=== PATIENT | male | born 1955 | race Caucasian/White ===

== ENCOUNTER 2020-01-21 17:08 | Inpatient (IN) ==
--- NOTE | 2020-01-21 19:47 | DR.EXTPAIN ---
HPI Time seen Time Seen by Provider: 01/21/20 19:46 PCP Primary Care Physician: Eliza HPI Comment HPI Comment: PATIENT IS 64 YR OLD FEMALE IN ER WITH INFECTED RIGHT FOOT TIMES 2 DAYS. PATIENT IS ON AMOXICILLIN PO. RUNNING FEVER. PATIENT HAVE 5/10 PAIN IN RIGHT FOOT. PAIN RADIATES TO LEG. ACHING NUMBING PAIN. PAIN PROGRESSIVE AND GETTING WORSE. PATIENT HAVE DECREASE SENSATION IN LOWER EXTREMITIES. NO DRAINAGE. Complaint/Symptoms Chief Complaint Doctor Comments: RIGHT FOOT INFECTION TIMES DAYS. Chief Complaint:: Right foot cellulitis, noted edema Self Treatment fo Chief Complaint: Amoxicillin 850 mg PO BID COVID-19 Coronavirus risk:travel/contact w/high risk person: No Has patient experienced Coronavirus symptoms: No Nurses notes reviewed Nurses Notes Review: Yes Source History Provided: Patient Mode of arrival Mode of Arrival: Ambulatory Timing Onset of Chief Complaint: 01/19/20 Context History of: Arthritis Associated signs and symptoms Associated Signs and Symptoms: Pain and Swelling PMH PMH Past Medical History: Yes Past Medical History: Angina, Arthritis, CHF, COPD and Hyperthyroidism Past Medical History Comment: atrial fib, aneurysm, Past Surgical History: Yes Surgical History: Joint Replacement and Ortho Surgery Past Surgical History Comment: pacemaker, watchman, syl knee replacement, syl hip replacement Family History History of Family Medical Conditions: Yes Family Medical History: Cancer, MD and Hypertension Social History Alcohol Use: None Do you use any recreational Drugs:: No Lives With: Spouse Lives Where: Home Infectious screening In the last 2 months have you had wt loss of >10#?: NO Have you had fever, night sweats or hemotysis?: No Have you traveled outside the country in the last 6 months?: No Isolation: Standard ROS Review of Systems Constitutional: See HPI and Fever; negative Weakness and Fatigue Eyes: No Symptoms Reported and See HPI ENTM: No Symptoms Reported and See HPI; negative Nose Discharge and Nose Congestion Respiratoy: See HPI and Short of Breath (ON EXERTION.); negative Wheezing Cardiovascular: No Symptoms Reported and See HPI; negative Chest Pain Gastrointestinal/Abdominal: No Symptoms Reported and See HPI; negative Abdominal Pain, Nausea and Vomiting Genitourinary: No Symptoms Reported and See HPI; negative Dysuria and Hematuria Neurological: No Symptoms Reported, See HPI, Numbness (LOWER EXTREMITIES.) and Paresthesia (LOWER EXTREMITIES.); negative Headache, Weakness and Dizziness Musculoskeletal: See HPI and Back Pain Integumentary: See HPI, Change in Color and Other (INFECTED TOES AND FOOT RIGHT.) Hematologic/Lymphatic: Easy Bruising; negative Swollen Glands Endocrine: No Symptoms Reported; negative Increased Thirst and Increased Urine Psychiatric: No Symptoms Reported and See HPI All Other Systems: Reviewed and Negative PE Vital Signs Vitals: Temperature 100.3 F Pulse Rate 82 Respiratory Rate 20 Blood Pressure [Left Arm] 147/72 Blood Pressure 118/71 O2 Sat by Pulse Oximetry 97 General Limitations: No Limitations General Appearance: Alert and In No Apparent Distress Head Head Exam: Normal Inspection Eyes Eye exam: Normal Appearance and PERRL; negative Scleral Icterus and Conjunctival Injection ENT ENT Exam: Normal Exam, Normal Oropharynx, Normal External Ear Exam and TM's Nor mal Bilaterally Neck Neck Exam: Normal Inspection and Trachea Midline; negative Tenderness and Lymphadenopathy Chest Chest Inspection: Normal Inspection and Symmetric Chest Wall Rise; negative Tenderness Respiratory Respiratory Exam: Normal Lung Sounds Bilat; negative Accessory Muscle Use, Chest Wall Tenderness and Respiratory Distress Respiratory Exam: Bilateral: Rhonchi and Lower: Rhonchi Cardiovascular Cardiovascular Exam: Regular Rate, Normal Rhythm, Normal Heart Sounds and Systolic Murmur; negative Diastolic Murmur Abdominal Exam Abdominal Exam: Normal Inspection, Normal Bowel Sounds and Soft; negative Tenderness Extremities Extremities Exam: Other (RIGHT FOOT REDNESS AND SWELLING WITH OBVIOUS INFECT ION.) Back Back Exam: Normal Inspection and Paraspinal Tenderness; negative (R) CVA Tenderness and (L) CVA Tenderness Neurological Neurological Exam: Alert and Oriented X3; negative Motor Sensory Deficit Psychiatric Psychiatric Exam: Normal Affect and Normal Mood Skin Skin Exam: Erythema (INFECTED RIGHT FOOT.) Type of Lesion: Abscess (ABSCESS WITH CELLULITIS RIGHT FOOT.) Distribution: RLE Description: Tenderness and Erythematous MDM Differential Diagnosis Differential Diagnosis: Other (ABSCESS WITH CELLULITIS RIGHT FOOT. FEVER, OSTEOMYELITIS.) COURSE Treatment Treatment: SEE ORDERS. VANCOMYCIN 1 GM IVPB AND NS IN ER. Consultation Consultation Comments: DISCUSSED PATIENT WITH DR. ROWAN. HE WILL ADMIT PATIENT. Education/Counseling Education/Counseling: Patient Educated On: Diagnosis ROR Labs Reviewed Laboratory Results Reviewed?: Yes Result Diagrams: 01/25/20 05:20 01/25/20 08:05 Laboratory: 01/21/20 20:29 Blood Blood Culture - Final 01/21/20 20:23 Blood Blood Culture - Final WBC 24.3 X10^3/uL (3.6-10.0) H 01/21/20 20: RBC 4.60 X10^6/uL (4.7-6.0) L 01/21/20 20: Hgb 13.6 g/dL (13.5-18.0) 01/21/20 20: Hct 40.5 % (42.0-54.0) L 01/21/20 20: MCV 88.0 fL (80.0-100.0) 01/21/20 20: MCH 29.5 pg (27.0-34.0) 01/21/20: MCHC 33.5 g/dL (33.0-35.0) 01/21/20: RDW 14.2 % (11.6-16.5) 01/21/20: Plt Count 186 X10^3/uL (150.0-450.0) 01/21/20 20: Plt Count Comment Adequate (ADEQUATE) 01/21/20: MPV 7.0 fL (7.4-11.0) L 01/21/20 20: Neut % (Auto) 82.3 % (42.0-75.0) H 01/21/20 20: Lymph % (Auto) 7.6 % (21.0-51.0) L 01/21/20: [place] % (Auto) 9.1 % (0.0-13.0) 01/21/20 20: Eos % (Auto) 0.4 % (0.9-2.9) L 01/21/20 20: Baso % (Auto) 0.6 % (0.2-1.0) 01/21/20 20: Neut # (Auto) 20.0 x10^3/uL (2.2-4.8) H 01/21/20 20:23 Lymph # (Auto) 1.9 X10^3/uL (1.3-2.9) 01/21/20 20: [place] # (Auto) 2.2 x10^3/uL (0.3-0.8) H 01/21/20 20:23 Eos # (Auto) 0.1 x10^3/uL (0.0-0.2) 01/21/20 20:23 Baso # (Auto) 0.2 X10^3/uL (0.0-0.1) H 01/21/20 20:23 Absolute Nucleated RBC 0.0 /100WBC 01/21/20 20:23 Total Counted 100 01/21/20 20:23 Neutrophils % (Manual) 71 % (39-76) 01/21/20 20:23 Band Neutrophils % 8 % (0-10) 01/21/20 20:23 Lymphocytes % (Manual) 13 % (13-43) 01/21/20 20:23 Monocytes % (Manual) 8 % (4-9) 01/21/20 20:23 Plt Morphology Comment Normal (NORMAL) 01/21/20 20: RBC Morphology Normal (NORMAL) 01/21/20 20: ESR 91 MM/HOUR (0-15) H 01/21/20 20:23 Sodium 136 mmol/L (136-145) 01/21/20 20:23 Corrected Sodium 136 mmol/L (136-145) 01/21/20 20:23 Potassium 3.7 mmol/L (3.5-5.1) 01/21/20 20:23 Chloride 99 mmol/L (98-107) 01/21/20 20:23 Carbon Dioxide 26.6 mmol/L (21-32) 01/21/20 20:23 BUN 24 mg/dL (7-18) H 01/21/20 20:23 Creatinine 1.18 mg/dL (0.70-1.30) 01/21/20 20:23 Est GFR (MDRD) Af Amer > 60 (>60) 01/21/20 20:23 Est GFR (MDRD) Non-Af > 60 (>60) 01/21/20 20:23 Glucose 113 mg/dL (65-99) H 01/21/20 20:23 Calcium 8.6 mg/dL (8.5-10.1) 01/21/20 20: Corrected Calcium 9.5 mg/dL (8.5-10.1) 01/21/20 20:23 Total Bilirubin 0.60 mg/dL (0.2-1.0) 01/21/20 20:23 AST 42 Units/L (15-37) H 01/21/20 20:23 ALT 65 Units/L (12-78) 01/21/20 20:23 Alkaline Phosphatase 91 Units/L (46-116) 01/21/20 20:23 C-Reactive Protein 276.60 mg/L (0-3.0) H 01/21/20 20:23 Total Protein 7.5 g/dL (6.4-8.2) 01/21/20 20:23 Albumin 2.9 g/dL (3.4-5.0) L 01/21/20 20:23 Globulin 4.6 g/dL (2.5-4.5) H 01/21/20 20:23 Albumin/Globulin Ratio 0.6 Ratio (1.1-2.1) L 01/21/20 20:23 XRAY XRAY Interpreted by: Radiologist (REPORT NOTED AND DISCUSSED WITH PATIENT.) and Self Opioid Opioid Risk Tool Age (Deandre box if 16-45): No History of Preadolescent Sexual Abuse: No Total: 0 Total Score Risk Category: Low Risk Copyright: Tomas HICKS predicting aberrant behaviors Instructions Instructions: Cellulitis, Adult Hypothyroidism Incision and Drainage, Care After Dyslipidemia Atrial Fibrillation Forms: Excuse From Work Precautions for COVID19 Patient Portal Social Distancing
[2020-01-21 20:46] LABS: BASOPHILS # (AUTO) 0.2 X10^3/uL (0.0-0.1); BASOPHILS % (AUTO) 0.6 % (0.2-1.0); EOSINOPHILS # (AUTO) 0.1 x10^3/uL (0.0-0.2); EOSINOPHILS % (AUTO) 0.4 % (0.9-2.9); HEMATOCRIT 40.5 % (42.0-54.0); HEMOGLOBIN 13.6 g/dL (13.5-18.0); LYMPHOCYTES # (AUTO) 1.9 X10^3/uL (1.3-2.9); LYMPHOCYTES % (AUTO) 7.6 % (21.0-51.0); MEAN CORPUSCULAR HEMOGLOBIN 29.5 pg (27.0-34.0); MEAN CORPUSCULAR HGB CONC 33.5 g/dL (33.0-35.0); MONOCYTES # (AUTO) 2.2 x10^3/uL (0.3-0.8); MONOCYTES % (AUTO) 9.1 % (0.0-13.0); NEUTROPHILS % (AUTO) 82.3 % (42.0-75.0); PLATELET COUNT 186 X10^3/uL (150.0-450.0); RED CELL DISTRIBUTION WIDTH 14.2 % (11.6-16.5); WHITE BLOOD COUNT 24.3 X10^3/uL (3.6-10.0)
[2020-01-21 20:54] LABS: ALANINE AMINOTRANSFERASE 65 Units/L (12-78); ALBUMIN 2.9 g/dL (3.4-5.0); ALKALINE PHOSPHATASE 91 Units/L (46-116); ASPARTATE AMINO TRANSFERASE 42 Units/L (15-37); BLOOD UREA NITROGEN 24 mg/dL (7-18); CALCIUM 8.6 mg/dL (8.5-10.1); CARBON DIOXIDE 26.6 mmol/L (21-32); CHLORIDE 99 mmol/L (98-107); COR CA(FOR HYPOALB) 9.5 mg/dL (8.5-10.1); COR NA(FOR HYPERGLY) 136 mmol/L (136-145); CREATININE 1.18 mg/dL (0.70-1.30); SODIUM 136 mmol/L (136-145); TOTAL PROTEIN 7.5 g/dL (6.4-8.2); eGFR NON BLACK RACES > 60 (>60)
[2020-01-21] MEDS ORDERED: NS 1000 ML 1,000 ML ONE (20:57)
[2020-01-21 21:06] LABS: BAND NEUTROPHILS % 8 % (0-10); PLATELET MORPHOLOGY COMMENT NORMAL (NORMAL)
[2020-01-21] MEDS: NS 1000 ML 1,000 ML IV SCH (21:12)
[2020-01-21 21:43] LABS: ERYTHROCYTE SEDIMENTATION RATE 91 MM/HOUR (0-15)
[2020-01-21] MEDS ORDERED: VANCOMYCIN IV *PREMIX 1 G/200 ML BAG 1 G/200 ML PIGGYBACK IV ONE (22:06)
--- NOTE | 2020-01-21 22:20 | RAD ---
HISTORYs/t swelling redness edema fevered right foot.br stepped on something days ago to plantar surface inferior base of first digit has puncture wound diabetes htnSTUDYFOOT, RIGHTCOMPARISONNoneFINDINGSThere is a previous osteotomy along the distal 1st metatarsal bone with surgical screws in the area. There is a surgical screw along the base of the proximal phalanx of the 1st toe. There is a surgical screw seen along the head of the 2nd metatarsal bone with a linear old unfused fracture along the head of the 2nd metatarsal bone.There is a surgical pin along the proximal phalanx of the 4th toe. There has been surgical resection of the head of the 3rd metatarsal bone. The tarsal bones are intact. There is bony spurring along the calcaneus. There is mild soft tissue swelling around the distal foot. There is a subchondral cyst or erosion along the DIP joint of the 1st toe and there is moderate soft tissue swelling lateral to the MTP joint with hallux valgus deformity of the great toe.IMPRESSIONExtensive postop changes along the distal foot with probable old unfused fracture along the head of the 2nd metatarsal bone and previous surgical resection of the head of the 3rd metatarsal bone with no obvious acute bony abnormality.Moderate soft tissue swelling lateral to the 1st MTP joint with prominent hallux valgus deformity great toe.Questionable subchondral cyst or erosion along the proximal phalanx of 1st toe distally.Electronically signed by: ANTHONY CHEUNG (Jan 21, 2020 22:18:46)
[2020-01-21] MEDS ORDERED: NS 250 ML IV 250 ML IV ONE (22:43)
[2020-01-21] MEDS ORDERED: VANCOMYCIN HCL ONE (22:43)
[2020-01-21] MEDS ORDERED: PHARMACY CONSULT - VANCOMYCIN XX SCH (23:00)
[2020-01-21] MEDS ORDERED: ZOFRAN TAB 4 MG PO PRN (23:24)
[2020-01-21] MEDS ORDERED: NS 1000 ML 1,000 ML IV SCH (23:45)
[2020-01-22 00:01] LABS: BILIRUBIN,URINE NEGATIVE (NEGATIVE); BLOOD/HEMOGLOBIN,URINE NEGATIVE (NEGATIVE); GLUCOSE, URINE NEGATIVE (NEGATIVE); KETONES,URINE NEGATIVE (NEGATIVE); LEUKOCYTE ESTERASE ,URINE NEGATIVE (NEGATIVE); NITRITES,URINE NEGATIVE (NEGATIVE); PROTEIN,URINE NEGATIVE (NEGATIVE); UROBILINOGEN,URINE NORMAL (NORMAL)
[2020-01-22 00:05] LABS: APPEARANCE,URINE CLEAR (CLEAR); COLOR,URINE YELLOW (YELLOW)
[2020-01-22 01:09] VITALS: BMI 32.4
[2020-01-22 06:06] LABS: BASOPHILS # (AUTO) 0.1 X10^3/uL (0.0-0.1); BASOPHILS % (AUTO) 0.3 % (0.2-1.0); EOSINOPHILS # (AUTO) 0.2 x10^3/uL (0.0-0.2); EOSINOPHILS % (AUTO) 0.9 % (0.9-2.9); HEMATOCRIT 38.6 % (42.0-54.0); LYMPHOCYTES # (AUTO) 1.8 X10^3/uL (1.3-2.9); LYMPHOCYTES % (AUTO) 9.2 % (21.0-51.0); MEAN CORPUSCULAR HEMOGLOBIN 29.5 pg (27.0-34.0); MEAN CORPUSCULAR HGB CONC 33.7 g/dL (33.0-35.0); MEAN CORPUSCULAR VOLUME 87.6 fL (80.0-100.0); MEAN PLATELET VOLUME 7.3 fL (7.4-11.0); MONOCYTES # (AUTO) 1.6 x10^3/uL (0.3-0.8); MONOCYTES % (AUTO) 8.4 % (0.0-13.0); NEUTROPHILS # (AUTO) 15.6 x10^3/uL (2.2-4.8); NEUTROPHILS % (AUTO) 81.2 % (42.0-75.0); PLATELET COUNT 163 X10^3/uL (150.0-450.0); RED BLOOD COUNT 4.41 X10^6/uL (4.7-6.0); RED CELL DISTRIBUTION WIDTH 14.2 % (11.6-16.5); WHITE BLOOD COUNT 19.2 X10^3/uL (3.6-10.0)
[2020-01-22 06:20] LABS: ALANINE AMINOTRANSFERASE 59 Units/L (12-78); ALBUMIN 2.6 g/dL (3.4-5.0); ALKALINE PHOSPHATASE 84 Units/L (46-116); ASPARTATE AMINO TRANSFERASE 35 Units/L (15-37); BLOOD UREA NITROGEN 20 mg/dL (7-18); CALCIUM 8.4 mg/dL (8.5-10.1); CHLORIDE 103 mmol/L (98-107); COR CA(FOR HYPOALB) 9.5 mg/dL (8.5-10.1); CREATININE 0.96 mg/dL (0.70-1.30); SODIUM 139 mmol/L (136-145); eGFR NON BLACK RACES > 60 (>60)
[2020-01-22] MEDS ORDERED: DEXTROSE 5% IV SCH (08:00)
[2020-01-22] MEDS ORDERED: VANCOMYCIN HCL IV SCH (08:00)
[2020-01-22] MEDS: VANCOMYCIN HCL 1 G in D5W 250 ML IV 250 ML IV SCH ×3 (08:46→21:45)
[2020-01-22] MEDS: ASPIRIN EC 81 MG PO SCH ×2 (08:47→21:44)
[2020-01-22] MEDS: NORVASC TAB 5 MG PO SCH (08:47)
[2020-01-22] MEDS: LIPITOR TAB 20 MG PO SCH (08:48)
[2020-01-22] MEDS: HYDROCHLOROTHIAZIDE 12.5 MG CAP PO SCH (08:48)
[2020-01-22] MEDS: SYNTHROID 25 mcg TAB PO SCH ×2 (08:50→16:31)
--- NOTE | 2020-01-22 08:54 | DR.H&P ---
H&P History & Physical for Day of: H&P Date: 01/22/20 Chief Complaint Chief Complaint: Right foot swelling and redness Allergies Allergies Allergy/AdvReac Type Severity Reaction Status Date / Time No Known Drug Allergies Allergy Verified 01/21/20 17:32 History of Present Illness History of Present Illness: Pt is a 64 yo m presenting with right foot erythema and edema that he initially noticed on Tuesday. He has neuropathy in his legs and has limited sensation so he does not recall feeling any injury but noticed a puncture wound on the sole of foot. He reports redness of surround skin has spread. Labs/imaging: Wbc 24.3>19.2, Hgb 13, Plt 163, Na 139, K 3.8, Cr 0.96, Gluc 95, CRP 276, UA negative, XR right foot: commented on moderate soft tissue swelling but no other acute findings. Pt was started on antibiotics IV Vancomycin, will continue treatment. Area of erythema demarcated using pen. Consult general surgery for evaluation. Resume home medications. Pt received last year Tdap. Continue to monitor and follow up labs/imaging in the morning. Past Medical History Past Medical History: Angina, Arthritis, CHF, COPD and Hyperthyroidism Past Surgical History Surgical History: Ortho Surgery Family History Family Medical History: Cancer, DC and Hypertension Social History Does patient currently use any type of tobacco product: No Have you used tobacco products in the last 12 months: No Type of Tobacco Use: None Alcohol Use: None Drug Use: None Medications Home Medications: No Known Drug Allergies Allergy (Verified 01/21/20 17:32) Labs Result Diagrams: 01/22/20 05:22 01/22/20 05:22 Labs: Laboratory WBC 19.2 X10^3/uL (3.6-10.0) H 01/22/20 05:22 RBC 4.41 X10^6/uL (4.7-6.0) L 01/22/20 05:22 Hgb 13.0 g/dL (13.5-18.0) L 01/22/20 05:22 Hct 38.6 % (42.0-54.0) L 01/22/20 05:22 MCV 87.6 fL (80.0-100.0) 01/22/20 05:22 MCH 29.5 pg (27.0-34.0) 01/22/20 05:22 MCHC 33.7 g/dL (33.0-35.0) 01/22/20 05:22 RDW 14.2 % (11.6-16.5) 01/22/20 05:22 Plt Count 163 X10^3/uL (150.0-450.0) 01/22/20 05:22 Plt Count Comment Adequate (ADEQUATE) 01/21/20 20:23 MPV 7.3 fL (7.4-11.0) L 01/22/20 05:22 Neut % (Auto) 81.2 % (42.0-75.0) H 01/22/20 05:22 Lymph % (Auto) 9.2 % (21.0-51.0) L 01/22/20 05:22 [place] % (Auto) 8.4 % (0.0-13.0) 01/22/20 05:22 Eos % (Auto) 0.9 % (0.9-2.9) 01/22/20 05:22 Baso % (Auto) 0.3 % (0.2-1.0) 01/22/20 05:22 Neut # (Auto) 15.6 x10^3/uL (2.2-4.8) H 01/22/20 05:22 Lymph # (Auto) 1.8 X10^3/uL (1.3-2.9) 01/22/20 05:22 [place] # (Auto) 1.6 x10^3/uL (0.3-0.8) H 01/22/20 05:22 Eos # (Auto) 0.2 x10^3/uL (0.0-0.2) 01/22/20 05:22 Baso # (Auto) 0.1 X10^3/uL (0.0-0.1) 01/22/20 05:22 Absolute Nucleated RBC 0.0 /100WBC 01/22/20 05:22 Total Counted 100 01/21/20 20:23 Neutrophils % (Manual) 71 % (39-76) 01/21/20 20:23 Band Neutrophils % 8 % (0-10) 01/21/20 20:23 Lymphocytes % (Manual) 13 % (13-43) 01/21/20 20:23 Monocytes % (Manual) 8 % (4-9) 01/21/20 20:23 Plt Morphology Comment Normal (NORMAL) 01/21/20 20:23 RBC Morphology Normal (NORMAL) 01/21/20 20:23 ESR 91 MM/HOUR (0-15) H 01/21/20 20:23 Sodium 139 mmol/L (136-145) 01/22/20 05:22 Corrected Sodium TNP 01/22/20 05:22 Potassium 3.8 mmol/L (3.5-5.1) 01/22/20 05:22 Chloride 103 mmol/L (98-107) 01/22/20 05:22 Carbon Dioxide 30.0 mmol/L (21-32) 01/22/20 05:22 BUN 20 mg/dL (7-18) H 01/22/20 05:22 Creatinine 0.96 mg/dL (0.70-1.30) 01/22/20 05:22 Est GFR (MDRD) Af Amer > 60 (>60) 01/22/20 05:22 Est GFR (MDRD) Non-Af > 60 (>60) 01/22/20 05:22 Glucose 95 mg/dL (65-99) 01/22/20 05:22 Calcium 8.4 mg/dL (8.5-10.1) L 01/22/20 05:22 Corrected Calcium 9.5 mg/dL (8.5-10.1) 01/22/20 05:22 Total Bilirubin 0.80 mg/dL (0.2-1.0) 01/22/20 05:22 AST 35 Units/L (15-37) 01/22/20 05:22 ALT 59 Units/L (12-78) 01/22/20 05:22 Alkaline Phosphatase 84 Units/L (46-116) 01/22/20 05:22 C-Reactive Protein 276.60 mg/L (0-3.0) H 01/21/20 20:23 Total Protein 7.0 g/dL (6.4-8.2) 01/22/20 05:22 Albumin 2.6 g/dL (3.4-5.0) L 01/22/20 05:22 Globulin 4.4 g/dL (2.5-4.5) 01/22/20 05:22 Albumin/Globulin Ratio 0.6 Ratio (1.1-2.1) L 01/22/20 05:22 Specimen Type Clean catch urine 01/21/20 23:45 Urine Color Yellow (YELLOW) 01/21/20 23:45 Urine Appearance Clear (CLEAR) 01/21/20 23:45 Urine pH 5.0 (5.0 - 8.0) 01/21/20 23:45 Ur Specific [place] 1.020 (1.000-1.030) 01/21/20 23:45 Urine Protein Negative (NEGATIVE) 01/21/20 23:45 Urine Glucose (UA) Negative (NEGATIVE) 01/21/20 23:45 Urine Ketones Negative (NEGATIVE) 01/21/20 23:45 Urine Occult Blood Negative (NEGATIVE) 01/21/20 23:45 Urine Nitrite Negative (NEGATIVE) 01/21/20 23:45 Urine Bilirubin Negative (NEGATIVE) 01/21/20 23:45 Urine Urobilinogen Normal (NORMAL) 01/21/20 23:45 Ur Leukocyte Esterase Negative (NEGATIVE) 01/21/20 23:45 Review of Systems Constitutional: No Symptoms Reported Eyes: No Symptoms Reported ENT: No Symptoms Reported Respiratory: No Symptoms Reported Cardiovascular: No Symptoms Reported Gastrointestinal: No Symptoms Reported Genitourinary: No Symptoms Reported Musculoskeletal: Foot Pain Skin: Rash and Wound Neurological: No Symptoms Reported Physical Exam Vital Signs: Temperature 98.2 F Pulse Rate [Left Brachial] 60 Pulse Rate 82 Respiratory Rate 18 Blood Pressure [Left Arm] 128/65 Blood Pressure 118/71 O2 Sat by Pulse Oximetry 96 Oriented: Normal Eyes: Normal Ear: Normal Nose: Normal Throat: Normal Respiratory: Clear Throughout Cardiovascular: Normal : Normal Auscultation: Bowel Sounds: Normal Palpation: Normal Tenderness: Normal Skin: Red (erythema plantar and dorsal of right foot) and Wound (Right foot puncture) Musculoskeletal: Normal Psychiatric: Normal Mood Description: Calm and Appropriate Affect: Normal Speech Pattern: Clear and Appropriate Assessment/Plan (1) Cellulitis of foot, right: Status: Acute Plan: IV Vancomycin Consult general surgery. (2) Atrial fibrillation: Status: Acute (3) Presence of Watchman left atrial appendage closure device: Status: Acute (4) Pacemaker: Status: Acute (5) Hypertension: Status: Acute (6) Hypothyroidism: Status: Acute (7) Hyperlipidemia: Status: Acute Review H&P Reviewed: Yes Patient was examined?: Yes
[2020-01-22] MEDS ORDERED: VANCOMYCIN HCL 500 MG in D5W 100 ML IV 100 ML IV SCH (09:00)
[2020-01-22] MEDS: NS 1000 ML 1,000 ML IV SCH ×2 (09:10→11:01)
--- NOTE | 2020-01-22 10:50 | RAD ---
HISTORYPREOPSTUDYCHEST, 1 VIEWCOMPARISONNoneTECHNIQUEAP view of the chestFINDINGSLeft chest wall pacemaker with lead in good position. Cardiac silhouette is borderline in size. Patchy left mid and lower lung opacities are present. No pleural effusion or pneumothorax.IMPRESSIONNonspecific patchy left mid and lower lung opacity may represent pneumonia in the right clinical setting.Electronically signed by: Meliton Osman (Jan 22, 2020 10:49:18)
[2020-01-22] MEDS ORDERED: LOVENOX INJ 40 MG SYR SC SCH (11:00)
[2020-01-22] MEDS: ROCEPHIN VIAL 1 GRAM 1 G in NS 100 ML IV + SPIKE MINIBAG* 100 ML IV SCH (12:02)
[2020-01-23] MEDS: NS 1000 ML 1,000 ML IV SCH ×3 (02:03→22:50)
[2020-01-23] MEDS ORDERED: PHARMACY COMMENT IV NR (05:30)
[2020-01-23 05:43] LABS: BLOOD UREA NITROGEN 15 mg/dL (7-18); CALCIUM 8.6 mg/dL (8.5-10.1); CARBON DIOXIDE 27.1 mmol/L (21-32); CHLORIDE 105 mmol/L (98-107); CREATININE 0.96 mg/dL (0.70-1.30); SODIUM 140 mmol/L (136-145); eGFR NON BLACK RACES > 60 (>60)
[2020-01-23 06:00] LABS: CREATININE 0.73 mg/dL (0.70-1.30); VANCOMYCIN,TROUGH 9.4 ug/mL (15-20)
--- NOTE | 2020-01-23 06:25 | CT ---
HISTORYs/t swelling redness edema fevered right foot.br stepped on something days ago to plantar surface inferior base of first digit has puncture woundSTUDYLOWER EXT W/O CONCOMPARISONNoneTECHNIQUECT of the right foot without contrast with sagittal and coronal reformats.Dose reduction techniques including Automated Exposure Control (AEC) and adjustment of mA and kV were utilized.FINDINGSStatus post chevron osteotomy of the great toe. There is nail fixation of the proximal phalanx of the 2nd digit and 4th digit status post resection arthroplasty. The head of the 2nd metatarsal and 3rd metatarsal appears flattened.There are a few foci of gas at the plantar aspect of the great toe at the level of the head of the proximal phalanx. See image 17 sagittal. There is significant associated soft tissue swelling. Mild subcutaneous edema over the dorsum of the foot. No acute fracture. Moderate midfoot degenerative change. Plantar and dorsal calcaneal spurs are present. Moderate degenerative change of great toe interphalangeal joint.IMPRESSIONSignificant soft tissue swelling about the plantar aspect of the proximal phalanx of the great toe and head of the great toe metatarsal. There are few tiny foci of gas likely the representing the site of puncture. Cannot exclude a small abscess but evaluation is limited without contrast.No specific evidence of osteomyelitis but consider MRI for this indication.Postoperative change as above.Electronically signed by: Meliton Osman (Jan 23, 2020 06:23:58)
[2020-01-23 06:42] LABS: BASOPHILS # (AUTO) 0.2 X10^3/uL (0.0-0.1); BASOPHILS % (AUTO) 1.2 % (0.2-1.0); EOSINOPHILS # (AUTO) 0.2 x10^3/uL (0.0-0.2); EOSINOPHILS % (AUTO) 1.5 % (0.9-2.9); HEMATOCRIT 40.2 % (42.0-54.0); HEMOGLOBIN 13.4 g/dL (13.5-18.0); LYMPHOCYTES % (AUTO) 13.9 % (21.0-51.0); MEAN CORPUSCULAR HEMOGLOBIN 29.3 pg (27.0-34.0); MEAN CORPUSCULAR HGB CONC 33.3 g/dL (33.0-35.0); MEAN CORPUSCULAR VOLUME 88.1 fL (80.0-100.0); MEAN PLATELET VOLUME 7.7 fL (7.4-11.0); MONOCYTES # (AUTO) 1.5 x10^3/uL (0.3-0.8); MONOCYTES % (AUTO) 10.9 % (0.0-13.0); NEUTROPHILS # (AUTO) 10.3 x10^3/uL (2.2-4.8); NEUTROPHILS % (AUTO) 72.5 % (42.0-75.0); PLATELET COUNT 170 X10^3/uL (150.0-450.0); RED BLOOD COUNT 4.56 X10^6/uL (4.7-6.0); RED CELL DISTRIBUTION WIDTH 14.1 % (11.6-16.5); WHITE BLOOD COUNT 14.2 X10^3/uL (3.6-10.0)
[2020-01-23 07:37] LABS: PLATELET MORPHOLOGY COMMENT NORMAL (NORMAL)
[2020-01-23] MEDS ORDERED: POLYMYXIN B SULFATE ONE (07:59)
[2020-01-23] MEDS: LIPITOR TAB 20 MG PO SCH (08:25)
[2020-01-23] MEDS: ASPIRIN EC 81 MG PO SCH ×2 (08:25→20:36)
[2020-01-23] MEDS: VANCOMYCIN HCL 250 MG, VANCOMYCIN HCL 1 G in D5W 250 ML IV 250 ML IV SCH ×3 (08:25→23:29)
[2020-01-23] MEDS: NORVASC TAB 5 MG PO SCH (08:25)
[2020-01-23] MEDS: HYDROCHLOROTHIAZIDE 12.5 MG CAP PO SCH (08:25)
--- NOTE | 2020-01-23 10:13 | PCM.PROG ---
Progress Note Progress Note for Day of Date of Exam: 01/23/20 Subjective Subjective: Pt is a 64 yo m pmhx Afib, HTN, Hypothyroidism, BLE neuropathy, HLD, admitted for right foot cellulitis vs abscess. He reports some improvement in erythema from demarcation line as well as edema. Labs/imaging: Wbc 19.2>14, Hgb 13.4, Plt 170, Na 140, K 3.9, Cr 0.73, Gluc 100. CT R foot: Significant soft tissue swelling about the plantar aspect of the proximal phalanx of the great toe and head of the great toe metatarsal. There are few tiny foci of gas likely the representing the site of puncture. Cannot exclude a small abscess but evaluation is limited without contrast. No specific evidence of osteomyelitis but consider MRI for this indication. Postoperative change as above. He is a patient of podiatry, Dr Crum that will be taking to the OR this morning for washout of possible underlying abscess. Incidentally on pre- operative imaging CXR showed Nonspecific patchy left mid and lower lung opacity may represent pneumonia in the right clinical setting. Pt not complaining of any respiratory problems or fevers, however while in hospital and about to have procedure, started pt on Rocephin. Continue IV Vancomycin. Continue to monitor and follow up labs/imaging in the morning. Past Medical Family Social History Past Med/Fam/Surg Hx: No changes since H&P Allergies: Allergies No Known Drug Allergies Allergy (Verified 01/21/20 17:32) Review of Systems ROS: No change since H&P Vital Signs and I&O's Vital Signs: Temperature 97.7 F Pulse Rate [Left Brachial] 60 Pulse Rate 82 Respiratory Rate 20 Blood Pressure [Left Arm] 131/68 Blood Pressure 118/71 O2 Sat by Pulse Oximetry 97 Intake and Output: Intake & Output 01/20/20 01/21/20 01/22/20 01/23/20 23:59 23:59 23:59 23:59 Intake Total 3258 / 3258 559 / 559 Output Total 2425 / 2425 1725 / 1725 Balance 833 / 833 -1166 / -1166 Physical Exam Oriented: Normal Eyes: Normal Ear: Normal Nose: Normal Throat: Normal Respiratory: Normal Cardiovascular: Normal : Normal Auscultation: Bowel Sounds: Normal Tenderness: Normal Skin: Red (erythema plantar and dorsal of right foot) and Wound (Right foot puncture) Musculoskeletal: Normal Psychiatric: Normal Mood Description: Calm and Appropriate Affect: Normal Speech Pattern: Clear and Appropriate Laboratory and Diagnostics Result Diagrams: 01/23/20 05:30 01/23/20 05:30 Labs: Laboratory WBC 14.2 X10^3/uL (3.6-10.0) H 01/23/20 05:30 RBC 4.56 X10^6/uL (4.7-6.0) L 01/23/20 05:30 Hgb 13.4 g/dL (13.5-18.0) L 01/23/20 05:30 Hct 40.2 % (42.0-54.0) L 01/23/20 05:30 MCV 88.1 fL (80.0-100.0) 01/23/20 05:30 MCH 29.3 pg (27.0-34.0) 01/23/20 05:30 MCHC 33.3 g/dL (33.0-35.0) 01/23/20 05:30 RDW 14.1 % (11.6-16.5) 01/23/20 05:30 Plt Count 170 X10^3/uL (150.0-450.0) 01/23/20 05:30 Plt Count Comment Adequate (ADEQUATE) 01/23/20 05:30 MPV 7.7 fL (7.4-11.0) 01/23/20 05:30 Neut % (Auto) 72.5 % (42.0-75.0) 01/23/20 05:30 Lymph % (Auto) 13.9 % (21.0-51.0) L 01/23/20 05:30 [place] % (Auto) 10.9 % (0.0-13.0) 01/23/20 05:30 Eos % (Auto) 1.5 % (0.9-2.9) 01/23/20 05:30 Baso % (Auto) 1.2 % (0.2-1.0) H 01/23/20 05:30 Neut # (Auto) 10.3 x10^3/uL (2.2-4.8) H 01/23/20 05:30 Lymph # (Auto) 2.0 X10^3/uL (1.3-2.9) 01/23/20 05:30 [place] # (Auto) 1.5 x10^3/uL (0.3-0.8) H 01/23/20 05:30 Eos # (Auto) 0.2 x10^3/uL (0.0-0.2) 01/23/20 05:30 Baso # (Auto) 0.2 X10^3/uL (0.0-0.1) H 01/23/20 05:30 Absolute Nucleated RBC 0.1 /100WBC 01/23/20 05:30 Total Counted 100 01/21/20 20:23 Neutrophils % (Manual) 71 % (39-76) 01/21/20 20:23 Band Neutrophils % 8 % (0-10) 01/21/20 20:23 Lymphocytes % (Manual) 13 % (13-43) 01/21/20 20:23 Monocytes % (Manual) 8 % (4-9) 01/21/20 20:23 Plt Morphology Comment Normal (NORMAL) 01/23/20 05:30 RBC Morphology Normal (NORMAL) 01/23/20 05:30 ESR 91 MM/HOUR (0-15) H 01/21/20 20:23 Sodium 140 mmol/L (136-145) 01/23/20 05:30 Corrected Sodium TNP 01/23/20 05:30 Potassium 3.9 mmol/L (3.5-5.1) 01/23/20 05:30 Chloride 105 mmol/L (98-107) 01/23/20 05:30 Carbon Dioxide 27.1 mmol/L (21-32) 01/23/20 05:30 BUN 15 mg/dL (7-18) 01/23/20 05:30 Creatinine 0.73 mg/dL (0.70-1.30) 01/23/20 05:30 Creatinine 0.96 mg/dL (0.70-1.30) 01/23/20 05:30 Est GFR (MDRD) Af Amer > 60 (>60) 01/23/20 05:30 Est GFR (MDRD) Non-Af > 60 (>60) 01/23/20 05:30 Glucose 100 mg/dL (65-99) H 01/23/20 05:30 Calcium 8.6 mg/dL (8.5-10.1) 01/23/20 05:30 Corrected Calcium 9.5 mg/dL (8.5-10.1) 01/22/20 05:22 Total Bilirubin 0.80 mg/dL (0.2-1.0) 01/22/20 05:22 AST 35 Units/L (15-37) 01/22/20 05:22 ALT 59 Units/L (12-78) 01/22/20 05:22 Alkaline Phosphatase 84 Units/L (46-116) 01/22/20 05:22 C-Reactive Protein 276.60 mg/L (0-3.0) H 01/21/20 20:23 Total Protein 7.0 g/dL (6.4-8.2) 01/22/20 05:22 Albumin 2.6 g/dL (3.4-5.0) L 01/22/20 05:22 Globulin 4.4 g/dL (2.5-4.5) 01/22/20 05:22 Albumin/Globulin Ratio 0.6 Ratio (1.1-2.1) L 01/22/20 05:22 Specimen Type Clean catch urine 01/21/20 23:45 Urine Color Yellow (YELLOW) 01/21/20 23:45 Urine Appearance Clear (CLEAR) 01/21/20 23:45 Urine pH 5.0 (5.0 - 8.0) 01/21/20 23:45 Ur Specific [place] 1.020 (1.000-1.030) 01/21/20 23:45 Urine Protein Negative (NEGATIVE) 01/21/20 23:45 Urine Glucose (UA) Negative (NEGATIVE) 01/21/20 23:45 Urine Ketones Negative (NEGATIVE) 01/21/20 23:45 Urine Occult Blood Negative (NEGATIVE) 01/21/20 23:45 Urine Nitrite Negative (NEGATIVE) 01/21/20 23:45 Urine Bilirubin Negative (NEGATIVE) 01/21/20 23:45 Urine Urobilinogen Normal (NORMAL) 01/21/20 23:45 Ur Leukocyte Esterase Negative (NEGATIVE) 01/21/20 23:45 Vancomycin Trough 9.4 ug/mL (15-20) L 01/23/20 05:30 Plan (1) Cellulitis of foot, right: Status: Acute Plan: IV Vancomycin Follow up recs and post-op washout by podiatry-Dr Hlad. (2) Atrial fibrillation: Status: Acute (3) Presence of Watchman left atrial appendage closure device: Status: Acute (4) Pacemaker: Status: Acute (5) Hypertension: Status: Acute (6) Hypothyroidism: Status: Acute (7) Hyperlipidemia: Status: Acute
[2020-01-23] MEDS ORDERED: LR 1000 ML IV 1,000 ML IV ONE (10:17)
[2020-01-23] MEDS ORDERED: FENTANYL INJ 100 mcg ONE (12:01)
[2020-01-23] MEDS ORDERED: DIPRIVAN VIAL ONE (12:10)
[2020-01-23] MEDS ORDERED: VERSED ONE (12:10)
[2020-01-23] MEDS ORDERED: XYLOCAINE 1 % (PLAIN) ONE (12:10)
[2020-01-23] MEDS ORDERED: MARCAINE 0.25% INJ ONE (12:16)
[2020-01-23] MEDS: ROCEPHIN VIAL 1 GRAM 1 G in NS 100 ML IV + SPIKE MINIBAG* 100 ML IV SCH (13:08)
[2020-01-23] MEDS: SYNTHROID 25 mcg TAB PO SCH (16:10)
[2020-01-24] MEDS: SYNTHROID 25 mcg TAB PO SCH (05:47)
[2020-01-24] MEDS: NS 1000 ML 1,000 ML IV SCH ×2 (05:47→19:00)
[2020-01-24 07:28] LABS: BASOPHILS # (AUTO) 0.1 X10^3/uL (0.0-0.1); BASOPHILS % (AUTO) 0.7 % (0.2-1.0); EOSINOPHILS # (AUTO) 0.3 x10^3/uL (0.0-0.2); EOSINOPHILS % (AUTO) 1.6 % (0.9-2.9); HEMOGLOBIN 12.7 g/dL (13.5-18.0); LYMPHOCYTES # (AUTO) 2.3 X10^3/uL (1.3-2.9); LYMPHOCYTES % (AUTO) 14.5 % (21.0-51.0); MEAN CORPUSCULAR HEMOGLOBIN 29.4 pg (27.0-34.0); MEAN CORPUSCULAR HGB CONC 33.4 g/dL (33.0-35.0); MEAN PLATELET VOLUME 6.8 fL (7.4-11.0); MONOCYTES # (AUTO) 1.5 x10^3/uL (0.3-0.8); MONOCYTES % (AUTO) 9.4 % (0.0-13.0); NEUTROPHILS # (AUTO) 11.8 x10^3/uL (2.2-4.8); NEUTROPHILS % (AUTO) 73.8 % (42.0-75.0); PLATELET COUNT 190 X10^3/uL (150.0-450.0); RED BLOOD COUNT 4.32 X10^6/uL (4.7-6.0)
[2020-01-24 07:30] LABS: BLOOD UREA NITROGEN 14 mg/dL (7-18); CALCIUM 8.4 mg/dL (8.5-10.1); CARBON DIOXIDE 26.7 mmol/L (21-32); CHLORIDE 103 mmol/L (98-107); CREATININE 0.89 mg/dL (0.70-1.30); SODIUM 138 mmol/L (136-145); eGFR NON BLACK RACES > 60 (>60)
[2020-01-24 07:35] LABS: CREATININE 0.9 mg/dL (0.70-1.30); VANCOMYCIN,TROUGH 15.8 ug/mL (15-20)
[2020-01-24] MEDS: VANCOMYCIN HCL 250 MG, VANCOMYCIN HCL 1 G in D5W 250 ML IV 250 ML IV SCH ×2 (08:59→16:05)
[2020-01-24] MEDS: HYDROCHLOROTHIAZIDE 12.5 MG CAP PO SCH (09:00)
[2020-01-24] MEDS ORDERED: LOVENOX INJ 40 MG SYR SC SCH (09:00)
[2020-01-24] MEDS: ASPIRIN EC 81 MG PO SCH ×2 (09:00→20:15)
[2020-01-24] MEDS: LIPITOR TAB 20 MG PO SCH (09:01)
[2020-01-24] MEDS: NORVASC TAB 5 MG PO SCH (09:01)
--- NOTE | 2020-01-24 11:08 | PCM.PROG ---
Progress Note Progress Note for Day of Date of Exam: 01/24/20 Subjective Subjective: Pt is a 64 yo m pmhx Afib, HTN, Hypothyroidism, BLE neuropathy, HLD, admitted for right foot cellulitis and abscess. Yesterday he had I&D and washout of wound. He reports doing well post-surgery. Labs/imaging: Wbc 14>16, Hgb 12.7, Plt 190, Na 138, K 3.8, Cr 0.89, Gluc 102. WoundCx pending. Podiatry to see pt today and will follow up recs. Continue antibiotics, Vancomycin+Rocephin. Monitor and follow up labs/imaging in the morning. Past Medical Family Social History Past Med/Fam/Surg Hx: No changes since H&P Allergies: Allergies No Known Drug Allergies Allergy (Verified 01/21/20 17:32) Review of Systems ROS: No change since H&P Vital Signs and I&O's Vital Signs: Temperature 97.7 F Pulse Rate [Left Brachial] 61 Pulse Rate 82 Respiratory Rate 20 Blood Pressure [Left Arm] 131/69 Blood Pressure 118/71 O2 Sat by Pulse Oximetry 98 Intake and Output: Intake & Output 01/21/20 01/22/20 01/23/20 01/24/20 23:59 23:59 23:59 23:59 Intake Total 3258 / 3258 4309 / 4309 563 / 563 Output Total 2425 / 2425 4020 / 4020 Balance 833 / 833 289 / 289 563 / 563 Physical Exam Oriented: Normal Eyes: Normal Ear: Normal Nose: Normal Throat: Normal Respiratory: Normal Cardiovascular: Normal : Normal Auscultation: Bowel Sounds: Normal Tenderness: Normal Skin: Red (erythema plantar and dorsal of right foot) and Wound (Right foot puncture) Musculoskeletal: Normal Psychiatric: Normal Mood Description: Calm and Appropriate Affect: Normal Speech Pattern: Clear and Appropriate Laboratory and Diagnostics Result Diagrams: 01/24/20 07:10 01/24/20 07:10 Labs: 01/23/20 12:30 Foot - Right Gram Stain - Final 01/23/20 12:30 Foot - Right Wound Culture - Preliminary 01/21/20 20:29 Blood Blood Culture - Preliminary 01/21/20 20:23 Blood Blood Culture - Preliminary Laboratory WBC 16.0 X10^3/uL (3.6-10.0) H 01/24/20 07:10 RBC 4.32 X10^6/uL (4.7-6.0) L 01/24/20 07:10 Hgb 12.7 g/dL (13.5-18.0) L 01/24/20 07:10 Hct 38.0 % (42.0-54.0) L 01/24/20 07:10 MCV 88.0 fL (80.0-100.0) 01/24/20 07:10 MCH 29.4 pg (27.0-34.0) 01/24/20 07:10 MCHC 33.4 g/dL (33.0-35.0) 01/24/20 07:10 RDW 14.0 % (11.6-16.5) 01/24/20 07:10 Plt Count 190 X10^3/uL (150.0-450.0) 01/24/20 07:10 Plt Count Comment Adequate (ADEQUATE) 01/23/20 05:30 MPV 6.8 fL (7.4-11.0) L 01/24/20 07:10 Neut % (Auto) 73.8 % (42.0-75.0) 01/24/20 07:10 Lymph % (Auto) 14.5 % (21.0-51.0) L 01/24/20 07:10 [place] % (Auto) 9.4 % (0.0-13.0) 01/24/20 07:10 Eos % (Auto) 1.6 % (0.9-2.9) 01/24/20 07:10 Baso % (Auto) 0.7 % (0.2-1.0) 01/24/20 07:10 Neut # (Auto) 11.8 x10^3/uL (2.2-4.8) H 01/24/20 07:10 Lymph # (Auto) 2.3 X10^3/uL (1.3-2.9) 01/24/20 07:10 [place] # (Auto) 1.5 x10^3/uL (0.3-0.8) H 01/24/20 07:10 Eos # (Auto) 0.3 x10^3/uL (0.0-0.2) H 01/24/20 07:10 Baso # (Auto) 0.1 X10^3/uL (0.0-0.1) 01/24/20 07:10 Absolute Nucleated RBC 0.0 /100WBC 01/24/20 07:10 Total Counted 100 01/21/20 20:23 Neutrophils % (Manual) 71 % (39-76) 01/21/20 20:23 Band Neutrophils % 8 % (0-10) 01/21/20 20:23 Lymphocytes % (Manual) 13 % (13-43) 01/21/20 20:23 Monocytes % (Manual) 8 % (4-9) 01/21/20 20:23 Plt Morphology Comment Normal (NORMAL) 01/23/20 05:30 RBC Morphology Normal (NORMAL) 01/23/20 05:30 ESR 91 MM/HOUR (0-15) H 01/21/20 20:23 Sodium 138 mmol/L (136-145) 01/24/20 07:10 Corrected Sodium TNP 01/24/20 07:10 Potassium 3.8 mmol/L (3.5-5.1) 01/24/20 07:10 Chloride 103 mmol/L (98-107) 01/24/20 07:10 Carbon Dioxide 26.7 mmol/L (21-32) 01/24/20 07:10 BUN 14 mg/dL (7-18) 01/24/20 07:10 Creatinine 0.89 mg/dL (0.70-1.30) 01/24/20 07:10 Creatinine 0.90 mg/dL (0.70-1.30) 01/24/20 07:10 Est GFR (MDRD) Af Amer > 60 (>60) 01/24/20 07:10 Est GFR (MDRD) Non-Af > 60 (>60) 01/24/20 07:10 Glucose 102 mg/dL (65-99) H 01/24/20 07:10 Calcium 8.4 mg/dL (8.5-10.1) L 01/24/20 07:10 Corrected Calcium 9.5 mg/dL (8.5-10.1) 01/22/20 05:22 Total Bilirubin 0.80 mg/dL (0.2-1.0) 01/22/20 05:22 AST 35 Units/L (15-37) 01/22/20 05:22 ALT 59 Units/L (12-78) 01/22/20 05:22 Alkaline Phosphatase 84 Units/L (46-116) 01/22/20 05:22 C-Reactive Protein 276.60 mg/L (0-3.0) H 01/21/20 20:23 Total Protein 7.0 g/dL (6.4-8.2) 01/22/20 05:22 Albumin 2.6 g/dL (3.4-5.0) L 01/22/20 05:22 Globulin 4.4 g/dL (2.5-4.5) 01/22/20 05:22 Albumin/Globulin Ratio 0.6 Ratio (1.1-2.1) L 01/22/20 05:22 Specimen Type Clean catch urine 01/21/20 23:45 Urine Color Yellow (YELLOW) 01/21/20 23:45 Urine Appearance Clear (CLEAR) 01/21/20 23:45 Urine pH 5.0 (5.0 - 8.0) 01/21/20 23:45 Ur Specific [place] 1.020 (1.000-1.030) 01/21/20 23:45 Urine Protein Negative (NEGATIVE) 01/21/20 23:45 Urine Glucose (UA) Negative (NEGATIVE) 01/21/20 23:45 Urine Ketones Negative (NEGATIVE) 01/21/20 23:45 Urine Occult Blood Negative (NEGATIVE) 01/21/20 23:45 Urine Nitrite Negative (NEGATIVE) 01/21/20 23:45 Urine Bilirubin Negative (NEGATIVE) 01/21/20 23:45 Urine Urobilinogen Normal (NORMAL) 01/21/20 23:45 Ur Leukocyte Esterase Negative (NEGATIVE) 01/21/20 23:45 Vancomycin Trough 15.8 ug/mL (15-20) 01/24/20 07:10 Plan (1) Cellulitis of foot, right: Status: Acute Plan: Continue antibiotics Follow up recs podiatry-Dr Crum. (2) Atrial fibrillation: Status: Acute (3) Presence of Watchman left atrial appendage closure device: Status: Acute (4) Pacemaker: Status: Acute (5) Hypertension: Status: Acute (6) Hypothyroidism: Status: Acute (7) Hyperlipidemia: Status: Acute
[2020-01-24] MEDS: ROCEPHIN VIAL 1 GRAM 1 G in NS 100 ML IV + SPIKE MINIBAG* 100 ML IV SCH (11:45)
[2020-01-24] MEDS ORDERED: BETADINE SOLN ONE (12:32)
[2020-01-25] MEDS: SYNTHROID 25 mcg TAB PO SCH (05:31)
[2020-01-25 05:57] LABS: BLOOD UREA NITROGEN 13 mg/dL (7-18); CALCIUM 8.8 mg/dL (8.5-10.1); CARBON DIOXIDE 28.3 mmol/L (21-32); CHLORIDE 106 mmol/L (98-107); CREATININE 0.86 mg/dL (0.70-1.30); SODIUM 140 mmol/L (136-145); eGFR NON BLACK RACES > 60 (>60)
[2020-01-25 05:58] LABS: BASOPHILS # (AUTO) 0.1 X10^3/uL (0.0-0.1); BASOPHILS % (AUTO) 0.8 % (0.2-1.0); EOSINOPHILS # (AUTO) 0.2 x10^3/uL (0.0-0.2); EOSINOPHILS % (AUTO) 1.5 % (0.9-2.9); HEMATOCRIT 37.7 % (42.0-54.0); HEMOGLOBIN 12.6 g/dL (13.5-18.0); LYMPHOCYTES # (AUTO) 2.4 X10^3/uL (1.3-2.9); LYMPHOCYTES % (AUTO) 17.4 % (21.0-51.0); MEAN CORPUSCULAR HEMOGLOBIN 29.5 pg (27.0-34.0); MEAN CORPUSCULAR HGB CONC 33.4 g/dL (33.0-35.0); MEAN CORPUSCULAR VOLUME 88.5 fL (80.0-100.0); MEAN PLATELET VOLUME 6.9 fL (7.4-11.0); MONOCYTES # (AUTO) 1.1 x10^3/uL (0.3-0.8); MONOCYTES % (AUTO) 8.1 % (0.0-13.0); NEUTROPHILS % (AUTO) 72.2 % (42.0-75.0); PLATELET COUNT 215 X10^3/uL (150.0-450.0); RED BLOOD COUNT 4.26 X10^6/uL (4.7-6.0); RED CELL DISTRIBUTION WIDTH 14.3 % (11.6-16.5); WHITE BLOOD COUNT 13.8 X10^3/uL (3.6-10.0)
[2020-01-25] MEDS: NS 1000 ML 1,000 ML IV SCH ×2 (06:09→09:33)
[2020-01-25] MEDS: HYDROCHLOROTHIAZIDE 12.5 MG CAP PO SCH (08:11)
[2020-01-25] MEDS: ROCEPHIN VIAL 1 GRAM 1 G in NS 100 ML IV + SPIKE MINIBAG* 100 ML IV SCH (08:11)
[2020-01-25] MEDS: ASPIRIN EC 81 MG PO SCH (08:11)
[2020-01-25] MEDS: LIPITOR TAB 20 MG PO SCH (08:12)
[2020-01-25] MEDS: NORVASC TAB 5 MG PO SCH (08:12)
[2020-01-25 08:40] LABS: CREATININE 0.93 mg/dL (0.70-1.30); VANCOMYCIN,TROUGH 14.1 ug/mL (15-20)
[2020-01-25] MEDS: VANCOMYCIN HCL 250 MG, VANCOMYCIN HCL 1 G in D5W 250 ML IV 250 ML IV SCH ×4 (08:50)
[2020-01-25] MEDS ORDERED: NS IRRIGATION* 1,000 ML ONE (10:24)
[2020-01-25] MEDS ORDERED: POLYMYXIN B SULFATE ONE (12:24)
[2020-01-25] MEDS ORDERED: BETADINE SOLN ONE (12:25)
[2020-01-25] MEDS ORDERED: MARCAINE 0.25% INJ ONE (12:41)
[2020-01-25] MEDS ORDERED: LR 1000 ML IV 1,000 ML IV ONE (12:42)
[2020-01-25] MEDS ORDERED: DIPRIVAN VIAL ONE (12:55)
[2020-01-25] MEDS ORDERED: VERSED ONE (12:55)
[2020-01-25] MEDS ORDERED: XYLOCAINE 1 % (PLAIN) ONE (12:55)
[2020-01-25 16:39] VITALS: BP 133/75
--- NOTE | 2020-01-28 14:04 | W.DIS.FURT ---
Summary of Discharge Discharge Summary of Date Date of Exam: 01/28/20 Admission Date Date of Admission: 01/22/20 Admission Diagnosis Hospital Course: Pt is a 64 yo m pmhx Afib, HTN, Hypothyroidism, BLE neuropathy, HLD, admitted for right foot cellulitis and abscess. He had I&D and washout of wound by podiatry. Received IV Vancomycin and Rocephin during hospital course. He reports doing well post-surgery. Labs/imaging: Wbc 16>13.8, Hgb 12.6, Plt 215, Na 140, K 4.1, Cr 0.93, Gluc 99. WoundCx NGTD. Podiatry rec outpt follow up and discharged with 7 day course of augmentin, instructions given for wound care. Pt discharged in stable condition, instructed to follow up with pcp in 3-5 days and podiatry per recommendations. Vital Signs: Vital Signs (72 hours) 01/25/20 14:00 01/25/20 14:15 01/25/20 14:30 Temperature Pulse Rate [Left Brachial] 59 L 60 60 Respiratory Rate 20 20 20 Blood Pressure [Left Arm] 152/82 141/74 139/83 O2 Sat by Pulse Oximetry 97 96 96 01/25/20 14:45 01/25/20 15:45 Temperature 97.0 F L Pulse Rate [Left Brachial] 60 68 Respiratory Rate 20 20 Blood Pressure [Left Arm] 134/78 133/75 O2 Sat by Pulse Oximetry 96 96 Labs: Laboratory Last Values WBC 13.8 X10^3/uL (3.6-10.0) H 01/25/20 05:20 RBC 4.26 X10^6/uL (4.7-6.0) L 01/25/20 05:20 Hgb 12.6 g/dL (13.5-18.0) L 01/25/20 05:20 Hct 37.7 % (42.0-54.0) L 01/25/20 05:20 MCV 88.5 fL (80.0-100.0) 01/25/20 05:20 MCH 29.5 pg (27.0-34.0) 01/25/20 05:20 MCHC 33.4 g/dL (33.0-35.0) 01/25/20 05:20 RDW 14.3 % (11.6-16.5) 01/25/20 05:20 Plt Count 215 X10^3/uL (150.0-450.0) 01/25/20 05:20 Plt Count Comment Adequate (ADEQUATE) 01/23/20 05:30 MPV 6.9 fL (7.4-11.0) L 01/25/20 05:20 Neut % (Auto) 72.2 % (42.0-75.0) 01/25/20 05:20 Lymph % (Auto) 17.4 % (21.0-51.0) L 01/25/20 05:20 [place] % (Auto) 8.1 % (0.0-13.0) 01/25/20 05:20 Eos % (Auto) 1.5 % (0.9-2.9) 01/25/20 05:20 Baso % (Auto) 0.8 % (0.2-1.0) 01/25/20 05:20 Neut # (Auto) 10.0 x10^3/uL (2.2-4.8) H 01/25/20 05:20 Lymph # (Auto) 2.4 X10^3/uL (1.3-2.9) 01/25/20 05:20 [place] # (Auto) 1.1 x10^3/uL (0.3-0.8) H 01/25/20 05:20 Eos # (Auto) 0.2 x10^3/uL (0.0-0.2) 01/25/20 05:20 Baso # (Auto) 0.1 X10^3/uL (0.0-0.1) 01/25/20 05:20 Absolute Nucleated RBC 0.0 /100WBC 01/25/20 05:20 Total Counted 100 01/21/20 20:23 Neutrophils % (Manual) 71 % (39-76) 01/21/20 20:23 Band Neutrophils % 8 % (0-10) 01/21/20 20:23 Lymphocytes % (Manual) 13 % (13-43) 01/21/20 20:23 Monocytes % (Manual) 8 % (4-9) 01/21/20 20:23 Plt Morphology Comment Normal (NORMAL) 01/23/20 05:30 RBC Morphology Normal (NORMAL) 01/23/20 05:30 ESR 91 MM/HOUR (0-15) H 01/21/20 20:23 Sodium 140 mmol/L (136-145) 01/25/20 05:20 Corrected Sodium TNP 01/25/20 05:20 Potassium 4.1 mmol/L (3.5-5.1) 01/25/20 05:20 Chloride 106 mmol/L (98-107) 01/25/20 05:20 Carbon Dioxide 28.3 mmol/L (21-32) 01/25/20 05:20 BUN 13 mg/dL (7-18) 01/25/20 05:20 Creatinine 0.93 mg/dL (0.70-1.30) 01/25/20 08:05 Est GFR (MDRD) Af Amer > 60 (>60) 01/25/20 05:20 Est GFR (MDRD) Non-Af > 60 (>60) 01/25/20 05:20 Glucose 99 mg/dL (65-99) 01/25/20 05:20 Calcium 8.8 mg/dL (8.5-10.1) 01/25/20 05:20 Corrected Calcium 9.5 mg/dL (8.5-10.1) 01/22/20 05:22 Total Bilirubin 0.80 mg/dL (0.2-1.0) 01/22/20 05:22 AST 35 Units/L (15-37) 01/22/20 05:22 ALT 59 Units/L (12-78) 01/22/20 05:22 Alkaline Phosphatase 84 Units/L (46-116) 01/22/20 05:22 C-Reactive Protein 276.60 mg/L (0-3.0) H 01/21/20 20:23 Total Protein 7.0 g/dL (6.4-8.2) 01/22/20 05:22 Albumin 2.6 g/dL (3.4-5.0) L 01/22/20 05:22 Globulin 4.4 g/dL (2.5-4.5) 01/22/20 05:22 Albumin/Globulin Ratio 0.6 Ratio (1.1-2.1) L 01/22/20 05:22 Specimen Type Clean catch urine 01/21/20 23:45 Urine Color Yellow (YELLOW) 01/21/20 23:45 Urine Appearance Clear (CLEAR) 01/21/20 23:45 Urine pH 5.0 (5.0 - 8.0) 01/21/20 23:45 Ur Specific [place] 1.020 (1.000-1.030) 01/21/20 23:45 Urine Protein Negative (NEGATIVE) 01/21/20 23:45 Urine Glucose (UA) Negative (NEGATIVE) 01/21/20 23:45 Urine Ketones Negative (NEGATIVE) 01/21/20 23:45 Urine Occult Blood Negative (NEGATIVE) 01/21/20 23:45 Urine Nitrite Negative (NEGATIVE) 01/21/20 23:45 Urine Bilirubin Negative (NEGATIVE) 01/21/20 23:45 Urine Urobilinogen Normal (NORMAL) 01/21/20 23:45 Ur Leukocyte Esterase Negative (NEGATIVE) 01/21/20 23:45 Vancomycin Trough 14.1 ug/mL (15-20) L 01/25/20 08:05 Reason For Visit: CELLULITIS RIGHT FOOT Discharge Date Discharge Date: 01/18/20 Discharge Diagnosis All Active Problems (Updated 01/22/20 @ 09:18 by Leo Dexter) Hyperlipidemia (Acute) Hypothyroidism (Acute) Hypertension (Acute) Pacemaker (Acute) Presence of Watchman left atrial appendage closure device (Acute) Atrial fibrillation (Acute) Cellulitis of foot, right (Acute) Plan of Treatment: Continue with present treatment and follow up plan. Pt is to keep follow up appointment as instructed and take medications as ordered. Discharge Medications Discharge Medications: No Known Drug Allergies Allergy (Verified 01/21/20 17:32) CONTINUE taking the following medications amlodipine 5 mg PO BID 01/22/20 [History] amoxicillin 875 mg PO BID 01/22/20 [History] aspirin [Aspirin Low Dose] 81 mg PO DAILY 01/22/20 [History] atorvastatin 20 mg PO DAILY 01/22/20 [History] hydrochlorothiazide 12.5 mg PO DAILY 01/22/20 [History] levothyroxine 25 mcg PO DAILY 01/22/20 [History] melatonin 10 mg PO HS 01/22/20 [History] omega 2-[id number]-[id number]-fish oil [Fish Oil] 1 cap PO BID 01/22/20 [History] New Prescriptions amoxicillin-pot clavulanate [Augmentin] 1 tab PO BID 7 Days #14 tab 01/25/20 [Rx] Discharge Disposition Discharge Disposition: Home Discharge Condition: Stable
[2020-02-21] MEDS ORDERED: FENTANYL INJ 100 mcg ONE (23:07)
== END 2020-01-25 18:20 | disposition home or self-care (01) | DRG 580 ==
LOC: ER 17:16 → MED/SURG 23:07
PROVIDERS: ADMIT Family Medicine; ATTEND Family Medicine
DX: Z95.0 Presence of cardiac pacemaker; E03.8 Other specified hypothyroidism; Z95.818 Presence of other cardiac implants and grafts; M00.9 Pyogenic arthritis, unspecified; X58.XXXA Exposure to other specified factors, initial encounter; R60.0 Localized edema; B95.61 Methicillin susceptible Staphylococcus aureus infection as the cause of diseases classified elsewhere; G62.9 Polyneuropathy, unspecified; I10 Essential (primary) hypertension; E78.2 Mixed hyperlipidemia; W22.8XXA Striking against or struck by other objects, initial encounter; I48.91 Unspecified atrial fibrillation; S91.331A Puncture wound without foreign body, right foot, initial encounter; L03.115 Cellulitis of right lower limb; L02.818 Cutaneous abscess of other sites